=== PATIENT | female | born 1980 | race Two or more races ===

== ENCOUNTER 2024-06-02 01:29 | Emergency (ER) | payer OTHER ==
[~2024-06-02] VITALS: Ht 152.4 cm; Wt 68.0 kg
[2024-06-02] MEDS ORDERED: KETOROLAC TROMETHAMINE 30 MG VIAL IV STA (04:47)
[2024-06-02] MEDS ORDERED: KETOROLAC TROMETHAMINE 30 MG VIAL ONE (05:00)
[2024-06-02 05:36] LABS: ANION GAP 8 (10.0-20.0); BLOOD UREA NITROGEN 11 mg/dL (7-18); BUN CREA RATIO 16 (7.0-25.0); CALCIUM 8.7 mg/dL (8.5-10.1); CARBON DIOXIDE 26 mEq/L (21-32); CHLORIDE 111 mmol/L (98-107); CREATININE SERUM 0.69 mg/dL (0.55-1.02); GLUCOSE FASTING 104 mg/dL (65-100); OSMOLALITY SERUM 281 MOSM/KG (275-295); POTASSIUM 3.82 mEq/L (3.5-5.1); SODIUM 141 mmol/L (136-145)
[2024-06-02 05:52] LABS: HCG QUANTITATIVE < 1 mUI/mL (1-3)
[2024-06-02 06:00] LABS: HEMATOCRIT 28.3 % (36.0-45.00); MEAN CORPUSCULAR HGB CONC 29.3 g/dl (32.0-36.0); PLATELET COUNT 187 K/uL (150-450); RED BLOOD COUNT 4.73 M/uL (4.00-6.00); RED CELL DISTRIBUTION WIDTH 20.3 % (11.5-14.5)
[2024-06-02 06:39] LABS: HEMOGLOBIN 8.3 g/dL (12.0-15.00); MEAN CELL VOLUME 59.8 fL (80.00-100.00); MEAN CORPUSCULAR HEMOGLOBIN 17.5 pg (27.00-32.0)
[2024-06-02 06:48] LABS: URINE APPEARANCE Clear; URINE BILIRRUBIN Negative (NEGATIVE); URINE BLOOD Small; URINE COLOR Yellow; URINE GLUCOSE Negative (NEGATIVE); URINE KETONE Trace (NEGATIVE); URINE LEUKOCYTE Trace; URINE NITRATE Positive; URINE PROTEIN Negative (NEGATIVE)
[2024-06-02 06:50] LABS: URINE EPITHELIAL CELLS 13.7 uL (0.0-38.8); URINE RBC 28.4 uL (0.0-20.8); URINE WBC 57.7 uL (0.0-23.2)
[2024-06-02 06:51] LABS: URINE BACTERIA > 9821.5 uL (0.0-1933)
[2024-06-02 06:52] LABS: URINE CAST 0.29 uL (0.0-1.40)
[2024-06-02] MEDS ORDERED: CEFTRIAXONE SODIUM 1,000 MG VIAL IV STA (06:58)
[2024-06-02] MEDS ORDERED: CEFTRIAXONE SODIUM 1,000 MG VIAL ONE (07:14)
[2024-06-02] MEDS ORDERED: CEPHALEXIN500 MG PO (10:17)
== END 2024-06-02 11:11 | disposition home or self-care (01) ==
LOC: ER 01:32
PROVIDERS: General Practice
DX: N39.0 Urinary tract infection, site not specified (principal); B96.1 Klebsiella pneumoniae [K. pneumoniae] as the cause of diseases classified elsewhere; D25.9 Leiomyoma of uterus, unspecified; N84.0 Polyp of corpus uteri; Z88.8 Allergy status to other drugs, medicaments and biological substances